=== PATIENT | female | born 1955 | race Caucasian/White ===

== ENCOUNTER 2019-12-22 15:19 | Emergency (ER) | payer OTHER ==
[~2019-12-22] VITALS: Ht 167.6 cm; Wt 60.8 kg
[2019-12-22 15:50] VITALS: Ht 167.6 cm; Wt 60.8 kg
[2019-12-22 20:02] VITALS: BP 166/75
== END 2019-12-22 20:02 | disposition home or self-care (01) ==
LOC: ED 15:19
DX: M54.5 Low back pain (principal); G89.29 Other chronic pain; I11.0 Hypertensive heart disease with heart failure; I50.9 Heart failure, unspecified; F17.210 Nicotine dependence, cigarettes, uncomplicated; Z88.0 Allergy status to penicillin; Z88.8 Allergy status to other drugs, medicaments and biological substances; Z90.89 Acquired absence of other organs
CPT/HCPCS: J1885; J2270; J7512

== ENCOUNTER 2020-01-01 22:49 | Emergency (ER) | payer OTHER ==
[~2020-01-01] VITALS: Ht 167.6 cm; Wt 63.5 kg
[2020-01-01 22:52] VITALS: Ht 167.6 cm; Wt 63.5 kg
[2020-01-02 00:08] VITALS: BP 128/77
== END 2020-01-02 00:08 | disposition home or self-care (01) ==
LOC: ED 22:49
DX: S52.501A Unspecified fracture of the lower end of right radius, initial encounter for closed fracture (principal); S52.251A Displaced comminuted fracture of shaft of ulna, right arm, initial encounter for closed fracture; I11.0 Hypertensive heart disease with heart failure; I50.9 Heart failure, unspecified; Z90.89 Acquired absence of other organs; Z88.0 Allergy status to penicillin; Z88.8 Allergy status to other drugs, medicaments and biological substances; W18.39XA Other fall on same level, initial encounter; Y93.89 Activity, other specified; Y92.89 Other specified places as the place of occurrence of the external cause; Y99.8 Other external cause status
CPT/HCPCS: Q0092